=== PATIENT | male | born 1945 | race Caucasian/White ===

== ENCOUNTER 2018-06-19 13:51 | Outpatient (RCR) | payer MEDICARE ==
[~2018-06-19 13:51] MED LIST: ATORVASTATIN CA20 MG PO; GLIPIZIDE ER5 MG PO; HYDROCHLOROTHIA25 MG PO; JANUMET 50-1,01 EACH PO; METFORMIN HCL500 M2 PO; METOPROLOL SUCC25 MG PO; OMEPRAZOLE20 M1 PO; ONGLYZA5 MG PO; SAXAGLIPTIN PO; SIMVASTATIN20 MG PO; TRILIPIX135 MG PO; ZESTRIL20 MG PO
== END 2018-06-23 ==
LOC: PT 13:51
PROVIDERS: ATTEND Orthopaedic Surgery
DX: S83.241A Other tear of medial meniscus, current injury, right knee, initial encounter (principal); S83.281A Other tear of lateral meniscus, current injury, right knee, initial encounter; M62.81 Muscle weakness (generalized); M25.561 Pain in right knee; M25.661 Stiffness of right knee, not elsewhere classified

== ENCOUNTER 2018-07-16 14:00 | Outpatient (RCR) | payer MEDICARE | END 2018-07-23 | LOC: PT 14:00 | PROVIDERS: ATTEND Orthopaedic Surgery | DX: M25.561 Pain in right knee (principal); M25.661 Stiffness of right knee, not elsewhere classified; M62.81 Muscle weakness (generalized); R26.2 Difficulty in walking, not elsewhere classified | CPT/HCPCS: 97139 ==

== ENCOUNTER 2018-11-30 09:50 | Inpatient (IN) | payer MEDICARE, OTHER ==
[~2018-11-30] VITALS: Ht 175.3 cm; Wt 115.7 kg
--- OUTSIDE RECORDS SUMMARY | 2018-11-30 09:54 | XMS REPORT | Continuity of Care Document ---
Author Author [employer] Address Unknown Phone Unavailable Care Team Providers Care Arranging Funeral Director Name Role Phone [employer] Unavailable Unavailable Problems Problem Status Onset Date Classification Date Reported Comments Source N40.1-BENIGN PROSTATIC HYPERPLASIA WITH Active 08/16/2016 [facility] Medications No Data Provided for This Section Allergies, Adverse Reactions, Alerts No Known Medication Allergies Immunizations No Data Provided for This Section Results Order Name Results Value Reference Range Date Interpretation Comments Source CHEM PANEL eGFR 68 08/23/2016 Result Comment: The eGFR is calculated using the CKD-EPI formula. In most young, healthy individuals the eGFR will be >90 mL/min/1.73m2. The eGFR declines with age. An eGFR of 60-89 may be normal in some populations, particularly the elderly, for whom the CKD-EPI formula has not been extensively validated. Use of the eGFR is not recommended in the following populations:

Individuals with unstable creatinine concentrations, including patients and those with serious co-morbid conditions.

Patients with extremes in muscle mass or diet.

The data above are obtained from the National Kidney Disease Education Program (NKDEP) which additionally recommends that when the eGFR is used in patients with extremes of body mass index for purposes of drug dosing, the eGFR should be multiplied by the estimated BMI. [facility] CHEM PANEL POC Creatinine 1.1 0.5 - 1.4 08/23/2016 [facility] Pathology Reports No Data Provided for This Section Diagnostic Reports Report Value Date Source Abdomen/Pelvis w/wo IV contrast CT CT ABDOMEN/PELVIS WITHOUT AND WITH IV CONTRAST HISTORY: ; - N40.1 Benign prostatic hyperplasia with lower urinary tract symptoms; TECHNIQUE: Multiple contiguous axial images of the abdomen and pelvis were performed. Coronal and sagittal reformatted images were obtained. IV CONTRAST: 100cc Omnipaque. GI CONTRAST: Yes. CT Radiation Dose: MJZ=[id number] mGy-cm COMPARISON: CT abdomen dated 07/30/2006 FINDINGS: Small benign calcified granulomas in both lung bases. Lung bases are otherwise clear. Liver demonstrates diffuse hepatic steatosis. No focal liver lesion. No calcified gallstones. No biliary dilation. The spleen, pancreas, and adrenal glands are normal. There is mild bilateral perinephric stranding, a nonspecific finding which can be associated with renal insufficiency. There is a small simple 1.1 cm cyst of the left kidney for which no specific follow-up is recommended. Mild vascular calcifications are noted within the bilateral renal melodie. No hydronephrosis. Normal excretion from both kidneys on delayed phase imaging. The prostate gland appears normal in size and measures 3.4 x 4.3 cm in axial cross section and 3.5 cm craniocaudad. Single small prostate calcification is noted. No periprostatic soft tissue nodule or lymphadenopathy. No inguinal, para iliac, or periaortic lymphadenopathy. Urinary bladder is unremarkable. Mild colonic diverticulosis without CT evidence of acute diverticulitis. Appendix not visualized. No CT evidence of acute appendicitis. Normal small bowel. No bowel obstruction. No ascites, adenopathy, or pneumoperitoneum in the abdomen or pelvis. Moderate aortoiliac atherosclerotic calcifications. There is a fat-containing left inguinal hernia which is incompletely visualized but measures up to 4.7 x 4.5 cm in axial cross section and greater than 10 cm craniocaudad. No aggressive osseous lesion is seen. Lower lumbar laminectomy and posterior fusion is noted. IMPRESSION: 1. Prostate gland within normal limits in size and demonstrates single calcification. 2. Mild bilateral perinephric stranding, a nonspecific finding which can be associated with renal insufficiency. 3. Hepatic steatosis, mild colonic diverticulosis, fat-containing left inguinal hernia, moderate aortoiliac atherosclerosis, postoperative lumbar spine. SL: [id number] 08/23/2016 [facility] Consultation Notes No Data Provided for This Section Discharge Summaries No Data Provided for This Section History and Physicals No Data Provided for This Section Vital Signs No Data Provided for This Section Encounters Location Location Details Encounter Type Encounter Number Reason For Visit Attending Provider ADM Date DC Date Status Source [facility] [id number] Petey Méndez 08/23/2016 08/24/2016 [facility] Procedures No Data Provided for This Section Assessment and Plan No Data Provided for This Section Plan of Care No Data Provided for This Section Social History Social History Date Source No data available for this section 08/24/2016 [facility] Family History No Data Provided for This Section Advance Directives No Data Provided for This Section Functional Status No Data Provided for This Section
--- NOTE | 2018-11-30 10:15 | NUR ---
PATIENT TO ROOM 6
--- NOTE | 2018-11-30 11:21 | Diagnostic Imaging Report ---
EXAMINATION: CHEST SINGLE (PORTABLE) INDICATION: Shortness of breath. COMPARISON: Chest radiograph 03/22/2018. FINDINGS: TUBES and LINES: None. LUNGS: Lungs are well inflated. Mild patchy bibasilar opacities, likely atelectasis. There is central vascular congestion. No evidence of pulmonary edema. PLEURA: No pleural effusion or pneumothorax. HEART AND MEDIASTINUM: The cardiomediastinal silhouette is moderately enlarged. Atherosclerotic calcifications of the aortic arch. BONES AND SOFT TISSUES: No acute osseous abnormality. UPPER ABDOMEN: No free air under the diaphragm. IMPRESSION: No acute radiographic abnormality. Signed by: Dr. Mandie Hammer MD on 11/30/2018 11:18 AM
[2018-11-30 11:22] LABS: BASOPHILS # (AUTO) 0.1 (0.0-0.1); BASOPHILS % 0.8 % (0.0-1.0); EOSINOPHILS # (AUTO) 0.2 (0.0-0.4); EOSINOPHILS % 2.6 % (0.0-6.0); HEMATOCRIT 38.1 % (38.2-49.6); HEMOGLOBIN 12.4 g/dL (14.0-18.0); LYMPHOCYTES # (AUTO) 1.3 (1.0-3.2); LYMPHOCYTES % 21.4 % (18.0-39.1); MEAN CORPUSCULAR HEMOGLOBIN 30.9 pg (28-32); MEAN CORPUSCULAR HGB CONC 32.5 g/dL (31-35); MONOCYTES # (AUTO) 0.7 (0.2-0.8); NEUTROPHILS % 63.9 % (38.7-80.0); PLATELET COUNT 199 x10e3/uL (140-360); RED BLOOD COUNT 4.01 x10e6/uL (4.3-5.7); RED CELL DISTRIBUTION WIDTH 15.3 % (11.7-14.4)
[2018-11-30 11:30] LABS: BILIRUBIN,URINE NEGATIVE (NEGATIVE); CLARITY,URINE CLEAR (CLEAR); COLOR,URINE YELLOW (YELLOW); KETONES,URINE NEGATIVE (NEGATIVE); LEUKOCYTE ESTERASE ,URINE NEGATIVE (NEGATIVE); NITRITE,URINE NEGATIVE (NEGATIVE); PROTEIN,URINE DIPSTICK 2+ (NEGATIVE); URINE UROBILINOGEN 0.2 mg/dL (0.2 - 1)
[2018-11-30 11:47] LABS: INR 1.03
[2018-11-30 11:53] LABS: ALBUMIN/GLOBULIN RATIO 1.1 (0.8-2.0); ANION GAP 16.1 mmol/L (8-16); CALCIUM 10.3 mg/dL (8.4-10.2); CREATININE, SERUM 1.21 mg/dL (0.72-1.25); MAGNESIUM 1.4 MG/DL (1.3-2.1); POTASSIUM 5.1 mmol/L (3.5-5.1)
[2018-11-30 11:58] LABS: PARTIAL THROMBOPLASTIN TIME 29.3 seconds (23.8-35.5)
[2018-11-30 11:59] LABS: BACTERIA,URINE FEW /HPF; EPITHELIAL CELLS,URINE FEW /LPF
[2018-11-30 12:00] LABS: CREATINE KINASE MB 1.1 ng/mL (0-5.0)
--- NOTE | 2018-11-30 12:00 | NUR ---
VENOUS DOPPLER COMPLETE
--- NOTE | 2018-11-30 12:55 | NUR ---
DR. MEHTA AT BEDSIDE RE EVALUATING PATIENT AND UPDATING HIM ON PLAN OF CARE
[2018-11-30] MEDS ORDERED: MORPHINE SULFATE 2 MG/ML SYR 1ML IV PRN (13:00)
[2018-11-30] MEDS ORDERED: NITROGLYCERIN 0.4 MG SUBL SL PRN (13:00)
[2018-11-30] MEDS ORDERED: ONDANSETRON HCL INJ 2MG/ML 2ML 2 MG/ML VIAL IV PRN (13:00)
[2018-11-30] MEDS ORDERED: DEXTROSE 50% SYRINGE 50 ML IV PRN (13:00)
--- OUTSIDE RECORDS SUMMARY | 2018-11-30 13:20 | XMS REPORT | Continuity of Care Document ---
Author Author [employer] Address Unknown Phone Unavailable Care Team Providers Care Lumber Handler Name Role Phone [employer] Unavailable Unavailable Problems Problem Status Onset Date Classification Date Reported Comments Source N40.1-BENIGN PROSTATIC HYPERPLASIA WITH Active 08/16/2016 [facility] Medications No Data Provided for This Section [...] should be multiplied by the estimated BMI. [facility] CHEM PANEL POC Creatinine 1.1 0.5 - 1.4 08/23/2016 [facility] Pathology Reports No Data Provided for This [...] Omnipaque. GI CONTRAST: Yes. CT Radiation Dose: [id number] mGy-cm COMPARISON: CT abdomen dated 07/30/2006 FINDINGS: [...] moderate aortoiliac atherosclerosis, postoperative lumbar spine. SL: [id number] 08/23/2016 [facility] Consultation Notes No Data Provided for This Section Discharge Summaries No Data Provided for This Section History and Physicals No Data Provided for This Section Vital Signs No Data Provided for This Section Encounters Location Location Details Encounter Type Encounter Number Reason For Visit Attending Provider ADM Date DC Date Status Source [facility] [id number] Petey Méndez 08/23/2016 08/24/2016 [facility] Procedures No Data Provided for This Section [...]
[2018-11-30] MEDS ORDERED: FUROSEMIDE INJ 10 MG/ML 2 ML VIAL IV SCH (13:30)
[2018-11-30] MEDS ORDERED: METOPROLOL TARTRATE 25 MG TAB PO SCH (13:30)
[2018-11-30] MEDS: INSULIN LISPRO 100 UNIT/1 ML 3ML VIAL SQ SCH ×2 (13:58→20:03)
[2018-11-30] MEDS: ENOXAPARIN SODIUM INJ 100 MG/ML SYR SC SCH (13:58)
[2018-11-30] MEDS ORDERED: SODIUM CHLORIDE 0.9% 50ML 50 ML ONE (14:05)
[2018-11-30] MEDS ORDERED: IOPAMIDOL 370 MG/ML 200 ML INFUS..BTL INJ ONE (14:05)
--- NOTE | 2018-11-30 14:12 | Diagnostic Imaging Report ---
EXAM: CT Chest WITH contrast -PE Protocol INDICATION: PE protocol. COMPARISON: Chest radiograph 11/30/2018. TECHNIQUE: Chest was scanned utilizing a multidetector helical scanner from the lung apex through the level of the adrenal glands without administration of IV contrast. Coronal and sagittal reformations were obtained. Routine protocol was performed. IV CONTRAST: 100 mL of Isovue-370. RADIATION DOSE: Total DLP: 659.6 mGy*cm Dose modulation, iterative reconstruction, and/or weight based adjustment of the mA/kV was utilized to reduce the radiation dose to as low as reasonably achievable. COMPLICATIONS: None FINDINGS: LINES/ TUBES: None. PULMONARY ARTERIES: Main pulmonary artery measures up to 3.4 cm. There is no evidence of pulmonary embolism to the level of the segmental pulmonary arteries. The subsegmental pulmonary arteries are not well opacified. LUNGS AND AIRWAYS: The central airways are patent. Patchy dependent atelectasis. Calcified granuloma in the right lower lobe. PLEURA: Small right pleural effusion. No evidence of pneumothorax. HEART AND MEDIASTINUM: The partially seen thyroid gland appears unremarkable. Calcified peribronchial and mediastinal lymph nodes, suggestive of prior granulomatous disease. Nonspecific enlarged 1.5 cm anterior mediastinal lymph node on series 2, image 44 and right peribronchial noncalcified lymph node measuring up to 1 cm on image 39. No cardiomegaly. Trace pericardial effusion. Scattered atherosclerotic calcifications within the thoracic aorta, branch vessels, and coronary arteries. UPPER ABDOMEN: Limited contrast-enhanced views of the upper abdomen. Small hiatal hernia. BONES: No acute osseous abnormality. No suspicious lytic or blastic lesions. Degenerative changes of the visualized spine. SOFT TISSUES: Unremarkable. IMPRESSION: No evidence of pulmonary embolism to the level of the segmental pulmonary arteries. Mild dilation of the main pulmonary artery, which may reflect pulmonary arterial hypertension. Small right pleural effusion. Calcified and noncalcified mediastinal and peribronchial lymphadenopathy, likely reflecting sequela of prior granulomatous disease. Signed by: Dr. Mandie Hammer MD on 11/30/2018 2:09 PM
[2018-11-30 15:43] VITALS: BP 170/80
[2018-11-30 16:12] VITALS: BP 170/80
[2018-11-30 16:13] VITALS: BP 170/80
[2018-11-30] MEDS ORDERED: AMLODIPINE BESYL5 MG PO (16:38)
[2018-11-30 19:08] VITALS: BP 170/80
[2018-11-30 19:30] VITALS: BP 159/74
[2018-11-30] MEDS ORDERED: CLONIDINE HCL 0.1 MG TAB PO PRN (20:00)
[2018-11-30] MEDS ORDERED: MAGNESIUM SULFATE 2GM/50ML 50 ML IV ONE (20:00)
[2018-11-30] MEDS: ATORVASTATIN 20 MG TAB PO SCH (20:02)
[2018-11-30] MEDS: FUROSEMIDE INJ 10 MG/ML 2 ML VIAL IV SCH (20:02)
[2018-11-30 20:54] LABS: CREATINE KINASE MB 1.2 ng/mL (0-5.0)
--- NOTE | 2018-11-30 21:24 | History and Physical ---
PRIMARY CARE PHYSICIAN: Diomedes Jackson DO. BRICK BAKER: Dr. Loaiza. CHIEF COMPLAINT: Atrial fibrillation associated with chest pain and acute congestive heart failure exacerbation. HISTORY OF PRESENT ILLNESS: The patient is a 73-year-old male, who is a patient of Dr. Diomedes Jackson, but usually go to the [place]. The patient was diagnosed with atrial fibrillation approximately few days ago. He was placed on anticoagulant therapy. The patient apparently is going to have some cardiac workup this coming week with stress test and so forth, but however over the past few days, the patient was having increasing shortness of breath where he is having difficulty with breathing. The patient is now admitted to the hospital for further treatment. Baseline diabetes-dyslipidemia, hypertension, and reflux. The patient recently started on blood thinner that was sent to the [place] where he had not started the medication as of yet. The patient had imaging done in the emergency room. The patient had a CT of the chest. No evidence of pulmonary embolism, mild dilation of the main pulmonary artery which may reflect pulmonary arterial hypertension with a small right pleural effusion. The patient is otherwise stable now. He is pending for further evaluation and treatment done by Dr. Loaiza on consult. PAST MEDICAL HISTORY: Recently diagnosed atrial fibrillation, hypertension, dyslipidemia, reflux, and diabetes type 2. PAST SURGICAL HISTORY: Noncontributory. SOCIAL HISTORY: The patient does not smoke or use alcohol. No recreational drug use. ALLERGIES: NO KNOWN ALLERGIES. HOME MEDICATIONS: The patient is on metformin, lisinopril, Lipitor, glipizide, omeprazole, hydrochlorothiazide, metoprolol succinate, and Norvasc. PHYSICAL EXAMINATION: VITAL SIGNS: Temperature is 98, blood pressure 166/77, pulse rate is 70, and respirations 18. GENERAL: The patient is not in acute distress. He is awake. HEENT: Normocephalic and atraumatic. Pupils are reactive. Anicteric. NECK: Supple grossly. No gross JVD. PULMONARY: Diminished breath sounds bilaterally with some rales at the bases, greater on the right compared to the left. ABDOMEN: Obese. EXTREMITIES: 1+ edema. NEUROLOGIC: No gross focal deficit, moving all extremity ambulatory. LABORATORY DATA: WBC is 6.2, hemoglobin 12.4, hematocrit 38.1, and platelets 199. Chemistry; sodium 141, potassium 5, chloride 102, bicarb 28, BUN is 17, creatinine 1.2, and glucose is 152. BNP is 238. CT scan of the chest showed pleural effusion. IMPRESSION: 1. Acute exacerbation of congestive heart failure. Echocardiogram, ejection fraction is still pending. 2. Atrial fibrillation with rate control. 3. Obesity. 4. Multiple chronic baseline problem diabetes type 2, dyslipidemia, hypertension, and reflux. PLAN: Diuretic. Check echocardiogram. Cardiac workup. Start the patient on anticoagulant therapy and because of his pending evaluation, possible left heart catheterization, we will place the patient on Lovenox for now. The patient is otherwise stable. Admit to the hospital for further workup. MD ISHMAEL Dunbar/HERMILA /[id number]
[2018-12-01] MEDS: ENOXAPARIN SODIUM INJ 100 MG/ML SYR SC SCH ×2 (00:34→12:18)
[2018-12-01] MEDS: METOPROLOL TARTRATE 25 MG TAB PO SCH ×2 (00:34→12:18)
--- NOTE | 2018-12-01 00:34 | NUR ---
Telemetry called with a pulse reading of 34. Check on patient and performed manual pulse count of 88. Will hold 0130 dose of metoprolol and continue to monitor.
[2018-12-01 00:50] VITALS: BP 141/74
--- NOTE | 2018-12-01 01:55 | Consultation ---
DATE OF CONSULTATION: 11/30/2018 Cardiology Consultation REASON FOR CONSULTATION: Shortness of breath. HISTORY OF PRESENT ILLNESS: Mr. Nick is a 73-year-old gentleman with past medical history of hypertension, type 2 diabetes, sleep apnea, as well as obesity. He was recently diagnosed with atrial fibrillation by his primary care physician several weeks ago. He reports about 6 to 7 months ago, he has had progressively worsening shortness of breath, easy fatigability, and decreased functional capacity. In the past two weeks, the patient has had episodes of shortness of breath with minimal exertion to rest. He reports waking up in the middle of night, fighting to catch his breath, consistent with PND and reports three pillow orthopnea type symptoms. Overall, he has also been having early satiety symptoms, unable to eat his meals just by feeling bloated in full real easily. He previously been seeing [place] physicians for his medical care and eventually came in here as his symptoms have worsened. He reports off and on leg swelling, but most recently his legs have been more swollen than normal. He has never been formally diagnosed previously with congestive heart failure or any cardiac issues. However, he has never had a cardiac evaluation in the past. PAST MEDICAL HISTORY: 1. Hypertension, essential. 2. Type 2 diabetes. 3. Hypercholesterolemia. 4. Obesity. 5. Sleep apnea. 6. Atrial fibrillation diagnosed in October 2018. PAST SURGICAL HISTORY: History of lumbar laminectomy x3. FAMILY HISTORY: Mother at 76 with intestinal obstruction. Father at 88 from sudden cardiac . Has a twin brother. His fraternal twin had a heart attack at age of 65 and and a 2nd brother is 70, had some kind of cancer, 3rd brother with CAD and stenting at the age of 78. SOCIAL HISTORY: He is a former smoker, quit in 1998. Former 1-1/2 pack per day smoker. Denies any alcohol or illicit drug use. ALLERGIES: NO KNOWN DRUG ALLERGIES. HOME MEDICATIONS: Include Norvasc 5 mg daily, atorvastatin 80 mg at bedtime, glipizide 10 mg b.i.d., hydrochlorothiazide 25 mg daily, lisinopril 40 mg daily, metformin 500 mg b.i.d., Toprol-XL 12.5 mg daily, omeprazole 20 mg daily, and Saxagliptin 5 mg daily. REVIEW OF SYSTEMS: GENERAL: Poor exercise tolerance, weight gain. No fevers or chills. HEENT: No headaches, visual complaints, sore throat, or stuffy nose. RESPIRATORY: Denies any pleuritic chest pain. Has severe shortness of breath as per HPI. Denies any subjective wheezing. Has a nonproductive cough. CARDIOVASCULAR: As per HPI. Denies any chest pain or discomfort. GI: Denies any abdominal pain. Bright red blood per rectum, melena, hematemesis. HEMATOLOGY: No easy bruising or bleeding. : Positive for urinary frequency and nocturia. Denies any pyuria. MUSCULOSKELETAL: Has chronic back pain. No leg pain. Has swelling in the legs bilaterally to the mid shins. NEUROLOGIC: Good coordination. Fair memory and speech. Has peripheral neuropathy. No seizures, history of TIA or stroke. PSYCH: Normal mood. No anxiety or delusions. PHYSICAL EXAMINATION: VITAL SIGNS: Height of 69 inches, weight of 268 pounds, BMI is 39.6, temperature of 98.0, pulse of 83, respiratory rate of 16, blood pressure 170/80, and blood pressure 95% on room air. GENERAL: This is a morbidly obese gentleman, sitting upright. He is currently in no apparent distress. HEENT: Normocephalic and atraumatic. Pupils are equal, round, and reactive to light. Extraocular movements are intact. Oropharynx is clear. NECK: JVD to the angle of the mandible. No carotid bruits. CARDIOVASCULAR: Irregularly irregular rate and rhythm. Normal S1 and S2. Soft 2/6 systolic murmur at the left lower sternal border. LUNGS: Show left basilar crackles. No wheezes. ABDOMEN: Soft, nontender, protuberant, and obese. Difficult to assess for splenomegaly or hepatomegaly. BACK: No costovertebral angle tenderness. EXTREMITIES: Warm with 2+ edema to the mid shins bilaterally. Diminished radial pulse and diminished pedal pulses. NEUROLOGIC: Alert and oriented. Cranial nerves 2 through 12 are intact. Strength is 5/5. Grossly nonfocal. PSYCH: Normal fluent speech. Appropriate affect. No anxiety or delusions. LABORATORY DATA: White count of 6.3, hemoglobin 12.4, hematocrit 38.1, and platelets of 199. Sodium 141, potassium 5.1, chloride 102, bicarb 28, BUN 17, creatinine 1.21, glucose of 152, calcium of 10.3, magnesium 1.4, AST 15, ALT 8, alkaline phosphatase 64, total protein of 7.6, and albumin 4.0. Troponin 0.037 with a normal CK and MB. BNP is 238. INR is 1.03. UA shows 2+ protein, 6 to [address] reveals no PE, mild pulmonary artery dilatation, small right pleural effusion and noncalcified mediastinal peribronchial lymphadenopathy. Sequelae of prior granulomatous disease. Chest x-ray shows no acute abnormalities. Lower extremity venous duplex shows no DVT. Echocardiogram shows EF of about 60%. Left atrium is severely dilated, and no significant valvular disease and trace to mild pericardial effusion. DIAGNOSES: 1. Symptom complex, most suggestive of acute decompensated diastolic heart failure. 2. Atrial fibrillation, persistent. 3. Type 2 diabetes with complications. 4. Hypertension. 5. Hypercholesteremia. 6. Obesity with obstructive sleep apnea. PLAN/RECOMMENDATIONS: 1. From a cardiovascular standpoint we will continue beta-kemi therapy for rate control therapy. 2. Recommend aggressive IV diuretic therapy and monitoring labs in a.m. to re-dose diuresis. 3. Antihypertensive to control blood pressure. 4. May need to avoid oral diabetic medications. 5. We will adjust therapy as clinical course dictates. MD ANSHU Mckay/HERMILA /[id number]
[2018-12-01 04:00] VITALS: BP 136/63
[2018-12-01 05:27] LABS: BASOPHILS # (AUTO) 0.1 (0.0-0.1); BASOPHILS % 1.2 % (0.0-1.0); EOSINOPHILS # (AUTO) 0.2 (0.0-0.4); HEMATOCRIT 37.8 % (38.2-49.6); HEMOGLOBIN 12.2 g/dL (14.0-18.0); LYMPHOCYTES # (AUTO) 1.6 (1.0-3.2); LYMPHOCYTES % 26.2 % (18.0-39.1); MEAN CORPUSCULAR HEMOGLOBIN 30.8 pg (28-32); MEAN CORPUSCULAR HGB CONC 32.3 g/dL (31-35); MEAN CORPUSCULAR VOLUME 95.5 fL (81-99); MONOCYTES # (AUTO) 0.8 (0.2-0.8); MONOCYTES % 13.8 % (4.4-11.3); NEUTROPHILS # (AUTO) 3.3 (2.1-6.9); NEUTROPHILS % 54.6 % (38.7-80.0); PLATELET COUNT 202 x10e3/uL (140-360); RED BLOOD COUNT 3.96 x10e6/uL (4.3-5.7); RED CELL DISTRIBUTION WIDTH 15.4 % (11.7-14.4)
[2018-12-01 05:51] LABS: ALANINE AMINOTRANSFERASE 9 IU/L (0-55); ALBUMIN 3.7 g/dL (3.5-5.0); ALBUMIN/GLOBULIN RATIO 1.1 (0.8-2.0); ALKALINE PHOSPHATASE 60 IU/L (40-150); ANION GAP 18.1 mmol/L (8-16); BLOOD UREA NITROGEN 18 mg/dL (7-26); BUN/CREATININE RATIO 16 (6-25); CALCIUM 10.1 mg/dL (8.4-10.2); CARBON DIOXIDE 28 mmol/L (22-29); CHLORIDE 99 mmol/L (98-107); CHOLESTEROL 117 MD/DL (0-199); CREATININE, SERUM 1.13 mg/dL (0.72-1.25); EST GLOMERULAR FILTRATION RATE > 60 ML/MIN (60-); GLUCOSE 111 mg/dL (74-118); POTASSIUM 4.1 mmol/L (3.5-5.1); SODIUM 141 mmol/L (136-145); TRIGLYCERIDES 102 MG/DL (0-149)
[2018-12-01 05:58] LABS: CREATINE KINASE MB 1.1 ng/mL (0-5.0)
[2018-12-01 06:36] LABS: BLOOD UREA NITROGEN 18 mg/dL (7-26); EST GLOMERULAR FILTRATION RATE > 60 ML/MIN (60-)
[2018-12-01 07:24] VITALS: BP 136/63
[2018-12-01] MEDS: INSULIN LISPRO 100 UNIT/1 ML 3ML VIAL SQ SCH ×4 (07:25→21:00)
[2018-12-01] MEDS: ASPIRIN 81 MG ENTERIC COATED PO SCH (09:23)
[2018-12-01] MEDS: FUROSEMIDE INJ 10 MG/ML 2 ML VIAL IV SCH (09:23)
[2018-12-01] MEDS: PANTOPRAZOLE SOD 40 MG TABEC PO SCH (09:23)
[2018-12-01] MEDS: AMLODIPINE BESYLATE 5 MG TAB PO SCH (09:23)
[2018-12-01 12:06] VITALS: BP 167/88
[2018-12-01 12:08] LABS: ANION GAP 22.1 mmol/L (8-16)
[2018-12-01 12:15] LABS: CHLORIDE 98 mmol/L (98-107); POTASSIUM 4.1 mmol/L (3.5-5.1); SODIUM 141 mmol/L (136-145)
[2018-12-01 12:16] LABS: BUN/CREATININE RATIO 15 (6-25); CALCIUM 10.1 mg/dL (8.4-10.2); CARBON DIOXIDE 25 mmol/L (22-29); CREATININE, SERUM 1.18 mg/dL (0.72-1.25); GLUCOSE 107 mg/dL (74-118)
[2018-12-01 13:00] LABS: CHOL/HDL RATIO 3.8 (3.9-4.7); HDL CHOLESTEROL 31 MG/DL (40-60); LDL CHOLESTEROL 66 MG/DL (60-130)
[2018-12-01] MEDS ORDERED: METOLAZONE 5 MG TAB PO NR ×2 (13:30→16:30)
[2018-12-01 14:06] LABS: CREATINE KINASE MB 1.1 ng/mL (0-5.0)
[2018-12-01 16:55] VITALS: BP 135/70
[2018-12-01] MEDS ORDERED: FUROSEMIDE INJ 10 MG/ML 4 ML VIAL IV SCH (17:00)
[2018-12-01] MEDS ORDERED: FUROSEMIDE INJ 10 MG/ML 2 ML VIAL IV SCH (17:00)
[2018-12-01 20:27] VITALS: BP 144/68
[2018-12-01] MEDS: ATORVASTATIN 20 MG TAB PO SCH (21:23)
--- NOTE | 2018-12-01 21:25 | NUR ---
SPOKE TO DR. CROWDER AT THIS TIME. SAID OK TO GIVE METOPROLOL SCHEDULED AT 0130
[2018-12-02] VITALS (8 sets, daily range): BP systolic 118–146; BP diastolic 65–78
[2018-12-02] MEDS: METOPROLOL TARTRATE 25 MG TAB PO SCH ×2 (01:00→14:07)
[2018-12-02] MEDS: ENOXAPARIN SODIUM INJ 100 MG/ML SYR SC SCH ×2 (01:00→14:07)
[2018-12-02 05:41] LABS: BASOPHILS # (AUTO) 0.1 (0.0-0.1); BASOPHILS % 1.3 % (0.0-1.0); EOSINOPHILS # (AUTO) 0.3 (0.0-0.4); EOSINOPHILS % 4.9 % (0.0-6.0); HEMATOCRIT 38.8 % (38.2-49.6); HEMOGLOBIN 12.7 g/dL (14.0-18.0); LYMPHOCYTES # (AUTO) 1.8 (1.0-3.2); LYMPHOCYTES % 26.8 % (18.0-39.1); MEAN CORPUSCULAR HEMOGLOBIN 30.8 pg (28-32); MEAN CORPUSCULAR HGB CONC 32.7 g/dL (31-35); MEAN CORPUSCULAR VOLUME 94.2 fL (81-99); MONOCYTES # (AUTO) 0.9 (0.2-0.8); MONOCYTES % 13.6 % (4.4-11.3); NEUTROPHILS # (AUTO) 3.6 (2.1-6.9); NEUTROPHILS % 53.1 % (38.7-80.0); PLATELET COUNT 191 x10e3/uL (140-360); RED BLOOD COUNT 4.12 x10e6/uL (4.3-5.7); RED CELL DISTRIBUTION WIDTH 15.3 % (11.7-14.4)
[2018-12-02 05:59] LABS: ALBUMIN 3.7 g/dL (3.5-5.0); ALBUMIN/GLOBULIN RATIO 1.1 (0.8-2.0); ANION GAP 17.8 mmol/L (8-16); CALCIUM 9.8 mg/dL (8.4-10.2); CREATININE, SERUM 1.33 mg/dL (0.72-1.25); POTASSIUM 3.8 mmol/L (3.5-5.1)
--- NOTE | 2018-12-02 07:05 | NUR ---
Patient lying in bed with eyes open. Respiration even and unlabored without SOB. Call light in reach.
[2018-12-02] MEDS: INSULIN LISPRO 100 UNIT/1 ML 3ML VIAL SQ SCH ×4 (07:30→20:59)
[2018-12-02] MEDS ORDERED: REGADENOSON 0.4 MG/5 ML SYR IV ONE (08:00)
[2018-12-02] MEDS: ASPIRIN 81 MG ENTERIC COATED PO SCH (09:00)
[2018-12-02] MEDS: AMLODIPINE BESYLATE 5 MG TAB PO SCH (09:00)
[2018-12-02] MEDS: PANTOPRAZOLE SOD 40 MG TABEC PO SCH (09:00)
--- NOTE | 2018-12-02 10:10 | NUR ---
Patient went to stress test at this time
[2018-12-02] MEDS ORDERED: AMIODARONE HCL 200 MG TAB PO SCH (12:00)
--- NOTE | 2018-12-02 12:02 | NUR ---
EDUCATED ABOUT IMM, SIGNED, FILED IN CHART, WITH COPY LEFT WITH FAMILY AT BEDSIDE.
[2018-12-02] MEDS ORDERED: ONDANSETRON HCL 4 MG ORAL DISINTEGRATING TAB PO PRN (12:15)
--- NOTE | 2018-12-02 13:00 | NUR ---
Performed the bedside PFT per doctor Loaiza request. I spoke with Dr. Loaiza and he stated that he did not need pre and post with a nebulizer treatment. He just needed the first 3 FVC trials. Pt tolorated the PFT well.
--- NOTE | 2018-12-02 13:10 | NUR ---
patient returned from stress test at this time.
--- NOTE | 2018-12-02 13:46 | NUR ---
Patient can now eat per Dr. Wilson Loaiza's order.
[2018-12-02] MEDS: FUROSEMIDE INJ 10 MG/ML 4 ML VIAL IV SCH (16:10)
[2018-12-02] MEDS: LISINOPRIL 20 MG TAB PO SCH (16:11)
--- NOTE | 2018-12-02 18:41 | NUR ---
Patient lying in bed with eyes open. Respiration even and unlabored without SOB.
--- NOTE | 2018-12-02 19:00 | NUR ---
received report from day nurse. patient is resting comfortably in bed. bed is in lowest position and call fuentes is within reach. will continue to monitor patient.
[2018-12-02] MEDS: ATORVASTATIN 20 MG TAB PO SCH (19:50)
--- NOTE | 2018-12-02 21:15 | Myoview Stress Test ---
DATE OF STUDY: 12/01/2018 13:08:00 Stress Test - Treadmill ONLY TITLE OF REPORT: Lexiscan nuclear stress test. INDICATION FOR STUDY: Equivalent angina symptoms and atrial fibrillation and abnormal EKG. TECHNICAL DETAILS: After risks, benefits, pros and cons of his Lexiscan nuclear stress test explained to the patient, the patient agreed to proceed. He was brought down to the nuclear lab, where he received 11 millicurie dose of technetium-99m tetrofosmin intravenously, and after 40 minutes, the patient was taken to the SPECT camera for resting myocardial perfusion imaging. Afterwards, the patient was then brought to the stress lab, where 12-lead EKG monitoring and blood pressure monitoring were obtained. He received a dose of Lexiscan 0.4 mg intravenously followed by 27.9 millicurie dose of technetium-99m tetrofosmin intravenously. Resting heart rate went from a baseline of 90 beats per minute to a maximum of 105 beats per minute and blood pressure went from baseline of 155/82 down to 131/75, which is an appropriate hemodynamic response. Underlying EKG revealed atrial fibrillation with nonspecific ST-T wave changes. When we went with Lexiscan infusion, there were no ischemic EKG changes or symptoms. After 25 minutes, the patient was then taken to the SPECT camera for stress myocardial perfusion imaging. FINDINGS: 1. Resting myocardial perfusion imaging reveals normal tracer uptake and no scintigraphic areas of ischemia. 2. Stress myocardial perfusion imaging reveals normal tracer uptake. No scintigraphic areas of ischemia. 3. The following gated measurements were obtained. End-diastolic volume 69 mm, systolic volume 18 mm, calculated left ventricular ejection fraction is 74% with normal wall motion. CONCLUSIONS: 1. Normal myocardial perfusion imaging study revealing normal tracer uptake and no scintigraphic areas of ischemia. 2. Normal left ventricular function with calculated ejection fraction of 74%. 3. Overall findings of the stress test are compatible with a low risk stress test. MD ANSHU Mckay/NICHELLEL /[id number]
[2018-12-03] VITALS: BP 111/61
[2018-12-03] MEDS: ENOXAPARIN SODIUM INJ 100 MG/ML SYR SC SCH ×2 (01:02→13:49)
[2018-12-03] MEDS: METOPROLOL TARTRATE 25 MG TAB PO SCH ×2 (01:02→13:49)
[2018-12-03 04:00] VITALS: BP 125/60
[2018-12-03 06:17] LABS: ALBUMIN 3.8 g/dL (3.5-5.0); ALBUMIN/GLOBULIN RATIO 1.1 (0.8-2.0); ANION GAP 17.3 mmol/L (8-16); CALCIUM 9.9 mg/dL (8.4-10.2); CREATININE, SERUM 1.53 mg/dL (0.72-1.25); POTASSIUM 4.3 mmol/L (3.5-5.1)
--- NOTE | 2018-12-03 06:57 | NUR ---
report given to day nurse. patient is resting comfortably in bed, bed is in lowest position and call fuentes is within reach.
--- NOTE | 2018-12-03 07:07 | NUR ---
Received patient awake alert, Respiration even and unlabored without SOB. call light in reach.
[2018-12-03 07:28] VITALS: BP 100/84
[2018-12-03 07:52] VITALS: BP 135/60
[2018-12-03] MEDS: INSULIN LISPRO 100 UNIT/1 ML 3ML VIAL SQ SCH ×2 (08:10→12:06)
[2018-12-03] MEDS: ASPIRIN 81 MG ENTERIC COATED PO SCH (08:15)
[2018-12-03] MEDS: PANTOPRAZOLE SOD 40 MG TABEC PO SCH (08:17)
[2018-12-03] MEDS: AMLODIPINE BESYLATE 5 MG TAB PO SCH (08:17)
[2018-12-03] MEDS: LISINOPRIL 20 MG TAB PO SCH (08:17)
[2018-12-03] MEDS: FUROSEMIDE INJ 10 MG/ML 4 ML VIAL IV SCH (08:18)
[2018-12-03 12:17] VITALS: BP 114/64
[2018-12-03] MEDS ORDERED: LASIX40 MG PO (14:13)
[2018-12-03] MEDS ORDERED: K DUR10 MEQ PO (14:14)
[2018-12-03 16:00] VITALS: BP_SYST 100; BP_SYST 119; BP_DIAS 59; BP_DIAS 61
--- NOTE | 2018-12-03 16:27 | NUR ---
Patient is to be discharge today to home. PIV to Left AC discontinued, catheter tip intact, no bleeding noted. Transported via wheelchair to private auto. Belongings are with the spouse.
[2018-12-03] MEDS ORDERED: APIXABAN 5 MG TABLET PO SCH (17:00)
[2018-12-04] MEDS ORDERED: FUROSEMIDE 40 MG TAB PO SCH (09:00)
--- NOTE | 2018-12-10 07:18 | Pulmonary Function Test ---
DATE OF STUDY: REFERRING PHYSICIAN: NAME OF STUDY: Spirometry Report FINDINGS: Restrictive pattern. Forced vital capacity 2.22 L, 62% of predicted. FEV1 of 1.69 L, 63% of predicted. FEV1/FVC ratio is 76%. FEF 25-75 of 66%. Restrictive pattern. The patient of Dr. Pruitt and Dr. Loaiza. MD DONAL Leslie/MODL /[id number]
== END 2018-12-03 16:27 | disposition home or self-care (01) | DRG 291 ==
LOC: ER 09:50 → ERHOLD 13:17 → MED/SURG 15:09
PROVIDERS: ADMIT Internal Medicine; ATTEND Internal Medicine
DX: I11.0 Hypertensive heart disease with heart failure (principal); I50.31 Acute diastolic (congestive) heart failure; E11.9 Type 2 diabetes mellitus without complications; E78.5 Hyperlipidemia, unspecified; E78.00 Pure hypercholesterolemia, unspecified; E66.9 Obesity, unspecified; Z68.37 Body mass index [BMI] 37.0-37.9, adult; G47.33 Obstructive sleep apnea (adult) (pediatric)
CPT/HCPCS: 36415; 71045; 71260; 78452; 80048; 80053; 80061; 81001; 82550; 82553; 82948; 83036; 83735; 83880; 84443; 84484; 85025; 85379; 85610; 85730; 87086; 93005; 93017; 93306; 93970; 94010; 99284; A9502; J1650; J1940; J3475; Q9967

== ENCOUNTER 2021-02-08 09:46 | Inpatient (IN) | payer OTHER, MEDICARE ==
[~2021-02-08] VITALS: Ht 177.8 cm; Wt 112.9 kg
[~2021-02-08 09:46] MED LIST changes: +ALOGLIPTIN25 MG PO; +AMLODIPINE BESYL5 MG PO; +ELIQUIS5 M1 PO; +K DUR10 MEQ PO; +LASIX40 MG PO; +METFORMIN HCL500 MG PO
[2021-02-08] MEDS ORDERED: TRADJENTA5 MG PO (10:00)
[2021-02-08] MEDS ORDERED: ATORVASTATIN CA20 MG PO (10:00)
[2021-02-08] MEDS ORDERED: FLOMAX0.4 MG PO (10:00)
[2021-02-08] MEDS ORDERED: PANTOPRAZOLE SO40 MG PO (10:00)
[2021-02-08] MEDS ORDERED: VITAMIN C500 MG PO (10:01)
[2021-02-08] MEDS ORDERED: ONDANSETRON HCL INJ 2MG/ML 2ML 2 MG/ML VIAL IV PRN (10:15)
[2021-02-08 10:20] LABS: BASOPHILS # (AUTO) 0.1 (0.0-0.1); BASOPHILS % 1.7 % (0.0-1.0); EOSINOPHILS # (AUTO) 0.2 (0.0-0.4); EOSINOPHILS % 3.5 % (0.0-6.0); HEMATOCRIT 39.5 % (38.2-49.6); HEMOGLOBIN 12.6 g/dL (14.0-18.0); LYMPHOCYTES # (AUTO) 1.6 (1.0-3.2); LYMPHOCYTES % 24.2 % (18.0-39.1); MEAN CORPUSCULAR HEMOGLOBIN 27.6 pg (28-32); MEAN CORPUSCULAR HGB CONC 31.9 g/dL (31-35); MEAN CORPUSCULAR VOLUME 86.4 fL (81-99); MONOCYTES # (AUTO) 0.7 (0.2-0.8); NEUTROPHILS # (AUTO) 3.9 (2.1-6.9); NEUTROPHILS % 60.3 % (38.7-80.0); PLATELET COUNT 238 x10e3/uL (140-360); RED BLOOD COUNT 4.57 x10e6/uL (4.3-5.7); RED CELL DISTRIBUTION WIDTH 17.1 % (11.7-14.4)
[2021-02-08 10:37] LABS: CLARITY,URINE CLEAR (CLEAR); COLOR,URINE YELLOW (YELLOW)
[2021-02-08 10:38] LABS: KETONES,URINE NEGATIVE (NEGATIVE); LEUKOCYTE ESTERASE ,URINE NEGATIVE (NEGATIVE); NITRITE,URINE NEGATIVE (NEGATIVE); PROTEIN,URINE DIPSTICK 2+ (NEGATIVE); URINE UROBILINOGEN 0.2 mg/dL (0.2 - 1)
[2021-02-08 10:43] LABS: BACTERIA,URINE RARE /HPF; RBC,URINE 0-5 /HPF (0-5); WBC,URINE (MAN) 0-5 /HPF (0-5)
[2021-02-08 10:52] LABS: INR 1.11; PROTHROMBIN TIME 15.2 seconds (11.9-14.5)
[2021-02-08 10:53] LABS: PARTIAL THROMBOPLASTIN TIME 34.3 seconds (23.8-35.5)
[2021-02-08 10:55] LABS: ALBUMIN 3.7 g/dL (3.5-5.0); ALBUMIN/GLOBULIN RATIO 0.8 (0.8-2.0); CREATININE, SERUM 1.44 mg/dL (0.72-1.25); MAGNESIUM 1.5 MG/DL (1.3-2.1)
[2021-02-08 11:22] LABS: CREATINE KINASE MB 1.8 ng/mL (0-5.0)
[2021-02-08 11:45] VITALS: BP 151/73
[2021-02-08 12:00] VITALS: BP 151/73
[2021-02-08 16:18] VITALS: BP 138/66
[2021-02-08] MEDS ORDERED: FUROSEMIDE 40 MG TAB PO SCH (18:00)
[2021-02-08] MEDS ORDERED: SODIUM CHLORIDE 0.9% 500ML 500 ML IV ONE (18:00)
[2021-02-08] MEDS ORDERED: SODIUM CHLORIDE 0.9% 500ML 500 ML ONE (18:05)
[2021-02-08] MEDS ORDERED: IOPAMIDOL 370 MG/ML 200 ML INFUS..BTL INJ ONE (18:44)
[2021-02-08] MEDS ORDERED: SODIUM CHLORIDE 0.9% 50ML 50 ML ONE (18:44)
[2021-02-08 19:50] LABS: CREATINE KINASE MB 1.6 ng/mL (0-5.0)
[2021-02-08 19:55] VITALS: BP 158/73
[2021-02-08 20:00] VITALS: BP 158/73
[2021-02-08] MEDS ORDERED: ATORVASTATIN 40 MG TAB PO SCH (21:00)
[2021-02-08] MEDS: TAMSULOSIN HCL 0.4 MG CAP PO SCH (21:10)
[2021-02-08] MEDS: ATORVASTATIN 40 MG TAB PO SCH (21:11)
[2021-02-09] VITALS (8 sets, daily range): BP systolic 136–149; BP diastolic 66–85
[2021-02-09 04:59] LABS: BASOPHILS # (AUTO) 0.1 (0.0-0.1); BASOPHILS % 1.2 % (0.0-1.0); EOSINOPHILS # (AUTO) 0.3 (0.0-0.4); EOSINOPHILS % 3.9 % (0.0-6.0); HEMATOCRIT 35.5 % (38.2-49.6); HEMOGLOBIN 11.1 g/dL (14.0-18.0); LYMPHOCYTES % 14.7 % (18.0-39.1); MEAN CORPUSCULAR HEMOGLOBIN 27.6 pg (28-32); MEAN CORPUSCULAR HGB CONC 31.3 g/dL (31-35); MEAN CORPUSCULAR VOLUME 88.3 fL (81-99); MONOCYTES # (AUTO) 0.6 (0.2-0.8); MONOCYTES % 9.2 % (4.4-11.3); NEUTROPHILS # (AUTO) 4.7 (2.1-6.9); NEUTROPHILS % 70.6 % (38.7-80.0); PLATELET COUNT 214 x10e3/uL (140-360); RED BLOOD COUNT 4.02 x10e6/uL (4.3-5.7)
[2021-02-09 05:26] LABS: ALBUMIN/GLOBULIN RATIO 0.8 (0.8-2.0); ANION GAP 15.2 mmol/L (8-16); CALCIUM 8.5 mg/dL (8.4-10.2); CHOL/HDL RATIO 3.2 (3.9-4.7); CREATININE, SERUM 1.43 mg/dL (0.72-1.25); POTASSIUM 4.2 mmol/L (3.5-5.1)
[2021-02-09 06:45] LABS: CREATINE KINASE MB 1.2 ng/mL (0-5.0)
[2021-02-09] MEDS ORDERED: FUROSEMIDE 40 MG TAB PO SCH (09:00)
[2021-02-09] MEDS ORDERED: TAMSULOSIN HCL 0.4 MG CAP PO SCH (09:00)
[2021-02-09] MEDS ORDERED: METOPROLOL SUCCINATE 50 MG TAB XL PO SCH ×2 (09:00)
[2021-02-09] MEDS: PANTOPRAZOLE SOD 40 MG TABEC PO SCH ×2 (09:17→16:24)
[2021-02-09] MEDS: GLIPIZIDE 5 MG TAB ER PO SCH ×2 (09:17→16:24)
[2021-02-09] MEDS: POTASSIUM CHLORIDE 10MEQ EA PO SCH (09:18)
[2021-02-09] MEDS: FUROSEMIDE 40 MG TAB PO SCH ×2 (09:18→16:24)
[2021-02-09] MEDS: SPIRONOLACTONE 25 MG TAB PO SCH ×2 (09:18→16:24)
[2021-02-09] MEDS: METOPROLOL SUCCINATE 50 MG TAB XL PO SCH (09:19)
[2021-02-09] MEDS: ASCORBIC ACID 500 MG TAB PO SCH (09:19)
[2021-02-09] MEDS ORDERED: ONDANSETRON HCL 4 MG ORAL DISINTEGRATING TAB PO PRN (13:45)
[2021-02-09 18:35] LABS: CREATININE,URINE RANDOM 70.97 mg/dL (63-166); TOTAL PROTEIN, URINE 47.7 mg/dL (1-14)
[2021-02-09 19:56] LABS: TOTAL PROTEIN 24HR, URINE 739.3 mg/24hr (50-100)
[2021-02-09] MEDS: ATORVASTATIN 40 MG TAB PO SCH (20:33)
[2021-02-09] MEDS: TAMSULOSIN HCL 0.4 MG CAP PO SCH (20:33)
[2021-02-10 04:55] LABS: BASOPHILS # (AUTO) 0.1 (0.0-0.1); BASOPHILS % 1.1 % (0.0-1.0); EOSINOPHILS # (AUTO) 0.3 (0.0-0.4); EOSINOPHILS % 4.4 % (0.0-6.0); HEMOGLOBIN 11.1 g/dL (14.0-18.0); LYMPHOCYTES # (AUTO) 1.1 (1.0-3.2); LYMPHOCYTES % 17.6 % (18.0-39.1); MEAN CORPUSCULAR HEMOGLOBIN 27.3 pg (28-32); MEAN CORPUSCULAR HGB CONC 30.8 g/dL (31-35); MEAN CORPUSCULAR VOLUME 88.7 fL (81-99); MONOCYTES # (AUTO) 0.7 (0.2-0.8); MONOCYTES % 11.1 % (4.4-11.3); NEUTROPHILS # (AUTO) 4.1 (2.1-6.9); NEUTROPHILS % 65.5 % (38.7-80.0); PLATELET COUNT 195 x10e3/uL (140-360); RED BLOOD COUNT 4.06 x10e6/uL (4.3-5.7)
[2021-02-10 05:42] LABS: ALBUMIN 3.1 g/dL (3.5-5.0); ALBUMIN/GLOBULIN RATIO 0.8 (0.8-2.0); ANION GAP 15.4 mmol/L (8-16); CALCIUM 8.8 mg/dL (8.4-10.2); CREATININE, SERUM 2.11 mg/dL (0.72-1.25); POTASSIUM 4.4 mmol/L (3.5-5.1)
[2021-02-10 07:47] VITALS: BP 145/75
[2021-02-10 08:22] VITALS: BP 145/75
[2021-02-10] MEDS: PANTOPRAZOLE SOD 40 MG TABEC PO SCH ×2 (09:50→17:41)
[2021-02-10] MEDS: GLIPIZIDE 5 MG TAB ER PO SCH ×2 (09:50→17:41)
[2021-02-10] MEDS: SPIRONOLACTONE 25 MG TAB PO SCH (09:50)
[2021-02-10] MEDS: FUROSEMIDE 40 MG TAB PO SCH (09:50)
[2021-02-10] MEDS: POTASSIUM CHLORIDE 10MEQ EA PO SCH (09:50)
[2021-02-10] MEDS: ASCORBIC ACID 500 MG TAB PO SCH (09:51)
[2021-02-10] MEDS: METOPROLOL SUCCINATE 50 MG TAB XL PO SCH (09:51)
[2021-02-10 11:38] VITALS: BP 142/76
[2021-02-10] MEDS ORDERED: SODIUM CHLORIDE 0.9% 500ML 500 ML IV ONE (15:30)
[2021-02-10 15:41] VITALS: BP 133/67
[2021-02-10 20:00] VITALS: BP 161/76
[2021-02-10] MEDS: ATORVASTATIN 40 MG TAB PO SCH (20:27)
[2021-02-10] MEDS: TAMSULOSIN HCL 0.4 MG CAP PO SCH (20:27)
[2021-02-10 21:00] VITALS: BP 161/76
[2021-02-11] VITALS (8 sets, daily range): BP systolic 136–157; BP diastolic 59–79
[2021-02-11 05:54] LABS: ANION GAP 14.2 mmol/L (8-16); CREATININE, SERUM 2.15 mg/dL (0.72-1.25); POTASSIUM 4.2 mmol/L (3.5-5.1)
[2021-02-11] MEDS: PANTOPRAZOLE SOD 40 MG TABEC PO SCH ×2 (09:05→16:59)
[2021-02-11] MEDS: GLIPIZIDE 5 MG TAB ER PO SCH ×2 (09:05→16:59)
[2021-02-11] MEDS: NON-FORMULARY MEDICATION (Linagliptin (Tradjenta) 5 MG) PO SCH ×2 (09:05→09:06)
[2021-02-11] MEDS: ASCORBIC ACID 500 MG TAB PO SCH (09:05)
[2021-02-11] MEDS: METOPROLOL SUCCINATE 50 MG TAB XL PO SCH (09:06)
[2021-02-11] MEDS ORDERED: SPIRONOLACTONE 25 MG TAB PO ONE (16:45)
[2021-02-11] MEDS ORDERED: FUROSEMIDE 20 MG TAB PO ONE (17:00)
[2021-02-11] MEDS: TAMSULOSIN HCL 0.4 MG CAP PO SCH (20:55)
[2021-02-11] MEDS: ATORVASTATIN 40 MG TAB PO SCH (20:55)
[2021-02-12 00:41] VITALS: BP 155/87
[2021-02-12 05:30] VITALS: BP 148/77
[2021-02-12 05:51] LABS: CALCIUM 9.3 mg/dL (8.4-10.2); CREATININE, SERUM 1.94 mg/dL (0.72-1.25)
[2021-02-12] MEDS: PANTOPRAZOLE SOD 40 MG TABEC PO SCH (07:30)
[2021-02-12 08:11] VITALS: BP 139/67
[2021-02-12 08:19] VITALS: BP 139/67
[2021-02-12] MEDS: GLIPIZIDE 5 MG TAB ER PO SCH (08:30)
[2021-02-12] MEDS: METOPROLOL SUCCINATE 50 MG TAB XL PO SCH (08:41)
[2021-02-12] MEDS: ASCORBIC ACID 500 MG TAB PO SCH (08:41)
[2021-02-12] MEDS: NON-FORMULARY MEDICATION (Linagliptin (Tradjenta) 5 MG) PO SCH (08:43)
[2021-02-12] MEDS ORDERED: SPIRONOLACTONE 25 MG TAB PO SCH (09:00)
[2021-02-12] MEDS ORDERED: FUROSEMIDE 20 MG TAB PO SCH (09:00)
[2021-02-12] MEDS ORDERED: SPIRONOLACTONE25 MG PO (11:41)
[2021-02-12 12:00] VITALS: BP 146/70
== END 2021-02-12 13:50 | disposition home or self-care (01) | DRG 291 ==
LOC: ER 09:56 → ERHOLD 10:17 → MED/SURG3 11:51
DX: I13.0 Hypertensive heart and chronic kidney disease with heart failure and stage 1 through stage 4 chronic kidney disease, or unspecified chronic kidney disease (principal); I50.33 Acute on chronic diastolic (congestive) heart failure; J96.01 Acute respiratory failure with hypoxia; R18.8 Other ascites; I48.20 Chronic atrial fibrillation, unspecified; N17.9 Acute kidney failure, unspecified; M79.89 Other specified soft tissue disorders; I25.10 Atherosclerotic heart disease of native coronary artery without angina pectoris; E66.9 Obesity, unspecified; E78.5 Hyperlipidemia, unspecified; E11.22 Type 2 diabetes mellitus with diabetic chronic kidney disease; N18.32 Chronic kidney disease, stage 3b; E78.00 Pure hypercholesterolemia, unspecified; G47.33 Obstructive sleep apnea (adult) (pediatric); Z87.891 Personal history of nicotine dependence; I77.9 Disorder of arteries and arterioles, unspecified; E88.09 Other disorders of plasma-protein metabolism, not elsewhere classified; Z68.35 Body mass index [BMI] 35.0-35.9, adult; J44.9 Chronic obstructive pulmonary disease, unspecified
CPT/HCPCS: 36415; 71045; 71260; 74177; 76705; 80048; 80053; 80061; 81001; 81050; 82044; 82270; 82550; 82553; 82570; 82948; 83735; 83880; 84156; 84165; 84443; 84484; 85025; 85610; 85730; 93005; 93306; 93970; 94799; 99284; J7040; Q9967; U0002

== ENCOUNTER → 2021-03-22 | Outpatient (CLI) | payer MEDICARE, OTHER ==
[~2021-03-22] MED LIST changes: +FLOMAX0.4 MG PO; +PANTOPRAZOLE SO40 MG PO; +SPIRONOLACTONE25 MG PO; +TRADJENTA5 MG PO; +VITAMIN C500 MG PO
== END ==
LOC: RESP 13:02
PROVIDERS: ATTEND Internal Medicine
DX: J44.9 Chronic obstructive pulmonary disease, unspecified (principal)
CPT/HCPCS: 71046; 94060; 94640; 94727; 94729

== ENCOUNTER → 2021-07-19 | Outpatient (CLI) | payer MEDICARE | LOC: CT 13:47 | PROVIDERS: ATTEND Internal Medicine | DX: R94.2 Abnormal results of pulmonary function studies (principal) | CPT/HCPCS: 71250 ==

== ENCOUNTER 2021-07-31 18:37 | Inpatient (IN) | payer OTHER, MEDICARE ==
[~2021-07-31] VITALS: Ht 177.8 cm; Wt 115.0 kg
[2021-07-31 19:04] LABS: BASOPHILS # (AUTO) 0.1 (0.0-0.1); BASOPHILS % 0.6 % (0.0-1.0); EOSINOPHILS # (AUTO) 0.1 (0.0-0.4); EOSINOPHILS % 1.8 % (0.0-6.0); HEMATOCRIT 33.3 % (38.2-49.6); HEMOGLOBIN 10.6 g/dL (14.0-18.0); LYMPHOCYTES # (AUTO) 0.9 (1.0-3.2); LYMPHOCYTES % 11.5 % (18.0-39.1); MEAN CORPUSCULAR HEMOGLOBIN 28.6 pg (28-32); MEAN CORPUSCULAR HGB CONC 31.8 g/dL (31-35); MEAN CORPUSCULAR VOLUME 89.8 fL (81-99); MONOCYTES # (AUTO) 0.8 (0.2-0.8); MONOCYTES % 10.5 % (4.4-11.3); NEUTROPHILS % 75.3 % (38.7-80.0); PLATELET COUNT 190 x10e3/uL (140-360); RED BLOOD COUNT 3.71 x10e6/uL (4.3-5.7); RED CELL DISTRIBUTION WIDTH 14.1 % (11.7-14.4)
[2021-07-31 19:27] LABS: ALBUMIN 2.7 g/dL (3.5-5.0); ALBUMIN/GLOBULIN RATIO 0.5 (0.8-2.0); ANION GAP 15.3 mmol/L (8-16); CALCIUM 8.2 mg/dL (8.4-10.2); CREATININE, SERUM 2.11 mg/dL (0.72-1.25); POTASSIUM 3.3 mmol/L (3.5-5.1)
[2021-07-31 19:38] LABS: CREATINE KINASE MB 0.5 ng/mL (0-5.0)
[2021-07-31] MEDS ORDERED: ONDANSETRON HCL INJ 2MG/ML 2ML 2 MG/ML VIAL IV STA (19:39)
[2021-07-31] MEDS ORDERED: Morphine 4mg Syringe 4 MG/ML INJ IV ONE (19:45)
[2021-07-31] MEDS ORDERED: FUROSEMIDE INJ 10 MG/ML 4 ML VIAL IV ONE (21:00)
[2021-07-31] MEDS ORDERED: DEXTROSE 50% SYRINGE 50 ML IV PRN (21:45)
[2021-08-01] VITALS (9 sets, daily range): BP systolic 103–122; BP diastolic 51–68
[2021-08-01] MEDS ORDERED: ONDANSETRON HCL INJ 2MG/ML 2ML 2 MG/ML VIAL IV PRN
[2021-08-01] MEDS: Morphine 4mg Syringe 4 MG/ML INJ IV PRN ×2 (01:32→08:43)
[2021-08-01 04:04] LABS: CREATINE KINASE MB 0.6 ng/mL (0-5.0)
[2021-08-01 05:14] LABS: BASOPHILS # (AUTO) 0.1 (0.0-0.1); BASOPHILS % 0.7 % (0.0-1.0); EOSINOPHILS # (AUTO) 0.2 (0.0-0.4); EOSINOPHILS % 2.2 % (0.0-6.0); HEMATOCRIT 33.3 % (38.2-49.6); HEMOGLOBIN 10.6 g/dL (14.0-18.0); LYMPHOCYTES % 14.3 % (18.0-39.1); MEAN CORPUSCULAR HEMOGLOBIN 28.8 pg (28-32); MEAN CORPUSCULAR HGB CONC 31.8 g/dL (31-35); MEAN CORPUSCULAR VOLUME 90.5 fL (81-99); MONOCYTES # (AUTO) 0.7 (0.2-0.8); MONOCYTES % 10.8 % (4.4-11.3); NEUTROPHILS # (AUTO) 4.9 (2.1-6.9); NEUTROPHILS % 71.7 % (38.7-80.0); PLATELET COUNT 203 x10e3/uL (140-360); RED BLOOD COUNT 3.68 x10e6/uL (4.3-5.7); RED CELL DISTRIBUTION WIDTH 13.9 % (11.7-14.4)
[2021-08-01 05:54] LABS: ALBUMIN 2.6 g/dL (3.5-5.0); ALBUMIN/GLOBULIN RATIO 0.5 (0.8-2.0); ANION GAP 16.6 mmol/L (8-16); CALCIUM 8.1 mg/dL (8.4-10.2); CREATININE, SERUM 2.07 mg/dL (0.72-1.25); POTASSIUM 3.6 mmol/L (3.5-5.1)
[2021-08-01 06:00] LABS: CREATINE KINASE MB 0.7 ng/mL (0-5.0)
[2021-08-01] MEDS: INSULIN REGULAR, HUMAN 100 UNIT/1 ML SQ SCH ×4 (07:30→20:50)
[2021-08-01] MEDS ORDERED: FUROSEMIDE INJ 10 MG/ML 4 ML VIAL IV SCH (09:00)
[2021-08-01] MEDS ORDERED: KETOROLAC TROMETHAMINE 30 MG/ML VIAL IV PRN (10:15)
[2021-08-01] MEDS ORDERED: AMLODIPINE BESYLATE 5 MG TAB PO PRN (10:15)
[2021-08-01] MEDS ORDERED: HYDROMORPHONE 1MG/1ML INJ IV PRN (10:45)
[2021-08-01] MEDS ORDERED: METHYLPREDNISOLONE SOD SUCC 125 MG/2ML VIAL IV ONE (11:15)
[2021-08-01] MEDS: HEPARIN SOD (PORCINE) 5,000 UNIT/ML VIAL SC SCH ×2 (12:29→20:58)
[2021-08-01] MEDS: PANTOPRAZOLE SOD 40 MG TABEC PO SCH (17:00)
[2021-08-01] MEDS: GLIPIZIDE 5 MG TAB ER PO SCH (17:00)
[2021-08-01 17:12] LABS: CREATINE KINASE MB 0.7 ng/mL (0-5.0)
[2021-08-01] MEDS: ATORVASTATIN 40 MG TAB PO SCH (20:49)
[2021-08-02] VITALS (7 sets, daily range): BP systolic 102–119; BP diastolic 45–64
[2021-08-02 05:54] LABS: HEMATOCRIT 35.7 % (38.2-49.6); HEMOGLOBIN 11.3 g/dL (14.0-18.0); LYMPHOCYTES # (AUTO) 0.4 (1.0-3.2); LYMPHOCYTES % 10.7 % (18.0-39.1); MEAN CORPUSCULAR HEMOGLOBIN 28.8 pg (28-32); MEAN CORPUSCULAR HGB CONC 31.7 g/dL (31-35); MEAN CORPUSCULAR VOLUME 91.1 fL (81-99); MONOCYTES # (AUTO) 0.1 (0.2-0.8); MONOCYTES % 2.9 % (4.4-11.3); NEUTROPHILS % 86.1 % (38.7-80.0); PLATELET COUNT 187 x10e3/uL (140-360); RED BLOOD COUNT 3.92 x10e6/uL (4.3-5.7); RED CELL DISTRIBUTION WIDTH 13.5 % (11.7-14.4)
[2021-08-02 06:12] LABS: ANION GAP 13.9 mmol/L (8-16); CALCIUM 8.3 mg/dL (8.4-10.2); CREATININE, SERUM 2.21 mg/dL (0.72-1.25); POTASSIUM 3.9 mmol/L (3.5-5.1)
[2021-08-02] MEDS: INSULIN REGULAR, HUMAN 100 UNIT/1 ML SQ SCH ×4 (07:30→22:05)
[2021-08-02] MEDS: METOPROLOL SUCCINATE 50 MG TAB XL PO SCH (08:16)
[2021-08-02] MEDS: LINAGLIPTIN 2.5 MG PO SCH (08:38)
[2021-08-02] MEDS: SPIRONOLACTONE 25 MG TAB PO SCH (08:50)
[2021-08-02] MEDS: TAMSULOSIN HCL 0.4 MG CAP PO SCH (08:50)
[2021-08-02] MEDS: FUROSEMIDE 40 MG TAB PO SCH (08:50)
[2021-08-02] MEDS: PANTOPRAZOLE SOD 40 MG TABEC PO SCH ×2 (08:50→17:35)
[2021-08-02] MEDS: GLIPIZIDE 5 MG TAB ER PO SCH ×2 (08:50→17:35)
[2021-08-02] MEDS: ASCORBIC ACID 500 MG TAB PO SCH (08:50)
[2021-08-02] MEDS: HEPARIN SOD (PORCINE) 5,000 UNIT/ML VIAL SC SCH ×3 (09:56→22:02)
[2021-08-02] MEDS ORDERED: ONDANSETRON HCL 4 MG ORAL DISINTEGRATING TAB PO PRN (13:00)
[2021-08-02] MEDS ORDERED: METHYLPREDNISOLONE SOD SUCC 40 MG/ML VIAL 1ML IV SCH (14:00)
[2021-08-02] MEDS: IPRATROPIUM BROMIDE 0.02% 2.5 ML NEB NEB SCH (19:30)
[2021-08-02] MEDS: ATORVASTATIN 40 MG TAB PO SCH (21:45)
[2021-08-03] VITALS: BP 136/66
[2021-08-03] MEDS: IPRATROPIUM BROMIDE 0.02% 2.5 ML NEB NEB SCH ×2 (01:40→07:00)
[2021-08-03 04:00] VITALS: BP 136/69
[2021-08-03 05:11] LABS: BASOPHILS % 0.1 % (0.0-1.0); HEMATOCRIT 30.3 % (38.2-49.6); HEMOGLOBIN 10.1 g/dL (14.0-18.0); LYMPHOCYTES # (AUTO) 0.3 (1.0-3.2); LYMPHOCYTES % 3.3 % (18.0-39.1); MEAN CORPUSCULAR HEMOGLOBIN 28.9 pg (28-32); MEAN CORPUSCULAR HGB CONC 33.3 g/dL (31-35); MEAN CORPUSCULAR VOLUME 86.8 fL (81-99); MONOCYTES # (AUTO) 0.4 (0.2-0.8); MONOCYTES % 4.5 % (4.4-11.3); NEUTROPHILS # (AUTO) 7.6 (2.1-6.9); NEUTROPHILS % 91.7 % (38.7-80.0); PLATELET COUNT 255 x10e3/uL (140-360); RED BLOOD COUNT 3.49 x10e6/uL (4.3-5.7); RED CELL DISTRIBUTION WIDTH 13.2 % (11.7-14.4)
[2021-08-03 05:35] LABS: ANION GAP 12.7 mmol/L (8-16); CALCIUM 8.1 mg/dL (8.4-10.2); CREATININE, SERUM 1.77 mg/dL (0.72-1.25); POTASSIUM 3.7 mmol/L (3.5-5.1)
[2021-08-03] MEDS: INSULIN REGULAR, HUMAN 100 UNIT/1 ML SQ SCH ×2 (07:30→11:30)
[2021-08-03 07:40] VITALS: BP 126/70
[2021-08-03 08:55] VITALS: BP 126/70
[2021-08-03] MEDS ORDERED: METHYLPREDNISOLONE SOD SUCC 40 MG/ML VIAL 1ML IV SCH (09:00)
[2021-08-03] MEDS: LINAGLIPTIN 2.5 MG PO SCH (09:00)
[2021-08-03] MEDS: HEPARIN SOD (PORCINE) 5,000 UNIT/ML VIAL SC SCH (09:00)
[2021-08-03] MEDS: GLIPIZIDE 5 MG TAB ER PO SCH (09:33)
[2021-08-03] MEDS: SPIRONOLACTONE 25 MG TAB PO SCH (09:35)
[2021-08-03] MEDS: TAMSULOSIN HCL 0.4 MG CAP PO SCH (09:36)
[2021-08-03] MEDS: FUROSEMIDE 40 MG TAB PO SCH (09:37)
[2021-08-03] MEDS: METOPROLOL SUCCINATE 50 MG TAB XL PO SCH (09:37)
[2021-08-03] MEDS: PANTOPRAZOLE SOD 40 MG TABEC PO SCH (09:37)
[2021-08-03] MEDS: ASCORBIC ACID 500 MG TAB PO SCH (09:38)
[2021-08-03 11:26] VITALS: BP 122/67
[2021-08-03 15:50] VITALS: BP 134/78
== END 2021-08-03 16:08 | disposition home or self-care (01) | DRG 291 ==
LOC: ER 18:45 → ERHOLD 21:34 → MED/SURG 23:36
DX: I13.0 Hypertensive heart and chronic kidney disease with heart failure and stage 1 through stage 4 chronic kidney disease, or unspecified chronic kidney disease (principal); I50.33 Acute on chronic diastolic (congestive) heart failure; N17.9 Acute kidney failure, unspecified; I48.20 Chronic atrial fibrillation, unspecified; J84.9 Interstitial pulmonary disease, unspecified; J44.9 Chronic obstructive pulmonary disease, unspecified; R59.0 Localized enlarged lymph nodes; E78.5 Hyperlipidemia, unspecified; R06.81 Apnea, not elsewhere classified; E11.22 Type 2 diabetes mellitus with diabetic chronic kidney disease; Z99.81 Dependence on supplemental oxygen; I25.10 Atherosclerotic heart disease of native coronary artery without angina pectoris; Z95.818 Presence of other cardiac implants and grafts; N18.32 Chronic kidney disease, stage 3b; Z20.822 Contact with and (suspected) exposure to COVID-19; K21.9 Gastro-esophageal reflux disease without esophagitis; R60.0 Localized edema
CPT/HCPCS: 36415; 70490; 71045; 71250; 80048; 80053; 82550; 82553; 82948; 83880; 84484; 85025; 86141; 93005; 93971; 94640; 94799; 97139; 99251; 99284; J1170; J1644; J1817; J1940; J2270; J2405; J2920; J2930; U0002

== ENCOUNTER → 2021-10-17 | Outpatient (CLI) | payer OTHER, MEDICARE | LOC: US 08:31 | PROVIDERS: ATTEND Internal Medicine Nephrology | DX: N18.32 Chronic kidney disease, stage 3b (principal) | CPT/HCPCS: 76770; 76857 ==

== ENCOUNTER → 2023-03-01 | Day surgery (SDC) | payer MEDICARE ==
[2023-02-27 15:36] LABS: BASOPHILS # (AUTO) 0.1 (0.0-0.1); BASOPHILS % 1.1 % (0.0-1.0); EOSINOPHILS # (AUTO) 0.2 (0.0-0.4); EOSINOPHILS % 2.6 % (0.0-6.0); HEMATOCRIT 39.2 % (38.2-49.6); HEMOGLOBIN 13.6 g/dL (14.0-18.0); LYMPHOCYTES % 29.1 % (18.0-39.1); MEAN CORPUSCULAR HEMOGLOBIN 34.6 pg (28-32); MEAN CORPUSCULAR HGB CONC 34.7 g/dL (31-35); MEAN CORPUSCULAR VOLUME 99.7 fL (81-99); MONOCYTES # (AUTO) 0.6 (0.2-0.8); NEUTROPHILS % 57.8 % (38.7-80.0); PLATELET COUNT 157 x10e3/uL (140-360); RED BLOOD COUNT 3.93 x10e6/uL (4.3-5.7); RED CELL DISTRIBUTION WIDTH 13.2 % (11.7-14.4); WHITE BLOOD COUNT 6.98 x10e3/uL (4.8-10.8)
[~2023-03-01] MED LIST changes: +ETOMIDATE 40 MG/ 20ML VIAL IV ONE; +FENTANYL CITRATE/PF 100MCG/2 ML INJ ONE; +GARLIC1000 MG PO; +HYOSCYAMINE SULFATE 0.5 MG/ML INJ ONE; +LACTATED RINGER'S 1,000 ML ONE; +LIDOCAINE HCL 2% LOCAL INJ 5 ML SDV VIAL INJ ONE; +PROPOFOL IV EMULSION 10 MG/ML 20 ML VIAL ONE; +STOOL SOFT-STI1 EACH PO; +VITAMIN B 12 PO
[2023-03-01 09:50] VITALS: BP 166/78; PULSE 78; RESP 18; O2SAT 97
== END | disposition home or self-care (01) ==
LOC: OR 06:45
PROVIDERS: ATTEND Internal Medicine Gastroenterology
DX: K20.90 Esophagitis, unspecified without bleeding (principal); K44.9 Diaphragmatic hernia without obstruction or gangrene; K29.50 Unspecified chronic gastritis without bleeding; K22.70 Barrett's esophagus without dysplasia; R68.81 Early satiety; I13.0 Hypertensive heart and chronic kidney disease with heart failure and stage 1 through stage 4 chronic kidney disease, or unspecified chronic kidney disease; E11.22 Type 2 diabetes mellitus with diabetic chronic kidney disease; N18.30 Chronic kidney disease, stage 3 unspecified; I50.9 Heart failure, unspecified; I48.91 Unspecified atrial fibrillation; E78.5 Hyperlipidemia, unspecified; J44.9 Chronic obstructive pulmonary disease, unspecified; I49.3 Ventricular premature depolarization; K21.00 Gastro-esophageal reflux disease with esophagitis, without bleeding; N40.0 Benign prostatic hyperplasia without lower urinary tract symptoms; D64.9 Anemia, unspecified; Z68.36 Body mass index [BMI] 36.0-36.9, adult; Z71.3 Dietary counseling and surveillance; Z01.812 Encounter for preprocedural laboratory examination; Z79.84 Long term (current) use of oral hypoglycemic drugs; Z79.899 Other long term (current) drug therapy
CPT/HCPCS: 36415 ×2; 43239; 82948; 85025; 88305; 88342; 93005; C9113; J1980; J2001; J2704; J3010; J7121